=== PATIENT | female | born 2000 | race Native Hawaiian/Other Pacific Islander ===

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

== ENCOUNTER 2022-01-06 14:27 | Outpatient (CLI) | payer OTHER | END 2022-01-06 22:01 | disposition home or self-care (01) | LOC: LABW 14:27 | PROVIDERS: ATTEND Nurse Practitioner Family | DX: Z32.00 Encounter for pregnancy test, result unknown (principal) | CPT/HCPCS: 36415; 84702 ==